=== PATIENT | female | born 1950 | race Caucasian/White ===

== ENCOUNTER 2023-09-26 06:32 | Day surgery (SDC) | payer OTHER, SELFPAY ==
[2023-09-14 07:46] VITALS: BMI 42.0
[2023-09-14 08:50] LABS: Hematocrit 38.4 % (37.0-47.0); Hemoglobin 12.7 g/dL (12.0-16.0); Mean Corp Hgb Conc. 33.1 g/dL (33.0-37.0); Mean Corpuscular Hgb 29.1 pg (27.0-31.0); Mean Corpuscular Volume 88.1 fL (81.0-99.0); Mean Platelet Volume 9.2 fL (7.4-10.4); Platelet Count 248 10^3/uL (130-400); Red Blood Cell Count 4.36 10^6/uL (4.20-5.40); Red Cell Dist. Width 13.2 % (11.5-14.5); White Blood Cell Count 4.8 10^3/uL (4.8-10.8)
[2023-09-14 10:55] LABS: Blood Urea Nitrogen 22 mg/dl (7-17); Calcium 9.5 mg/dl (8.4-10.2); Carbon Dioxide 29 mmol/L (22-30); Chloride 102 mmol/L (98-107); Estimated Creatinine Clearance 75 ml/min; Glucose 89 mg/dl (70-99); Potassium 3.5 mmol/L (3.5-5.1); Sodium 142 mmol/L (135-145); eGFR > 60.00
--- NOTE | 2023-09-14 13:55 | PTCARENOTE ---
Abn ECG, Dr. Bedoya notified, no new requests.
[2023-09-26] VITALS (9 sets, daily range): BP systolic 127–161; BP diastolic 56–94; BMI 42.0
[2023-09-26] MEDS: NORMOSOL-R 1000 IV (13:32)
[2023-09-26] MEDS: Pyridium 200 MG PO (13:33)
== END 2023-09-26 17:10 | disposition home or self-care (01) ==
LOC: SDS 06:32
PROVIDERS: ATTENDING PHYSICIAN Obstetrics & Gynecology; FAMILY PHYSICIAN Family Medicine
DX: N39.3 Stress incontinence (female) (male) (principal); N39.46 Mixed incontinence; N81.6 Rectocele; N95.2 Postmenopausal atrophic vaginitis
CPT/HCPCS: 57288; 36415; 80048; 85027; 86850; 86900; 86901; 93005; C1771

== ENCOUNTER → 2023-11-19 14:02 | Outpatient (REF) | payer OTHER, SELFPAY | LOC: WDC 14:02 | PROVIDERS: ATTENDING PHYSICIAN Surgery; FAMILY PHYSICIAN Family Medicine | DX: Z12.31 Encounter for screening mammogram for malignant neoplasm of breast (principal); Z85.3 Personal history of malignant neoplasm of breast; C50.412 Malignant neoplasm of upper-outer quadrant of left female breast; Z17.0 Estrogen receptor positive status [ER+] | CPT/HCPCS: 77063; 77067 ==

== ENCOUNTER 2024-03-06 06:23 | Day surgery (SDC) | payer OTHER, SELFPAY | END 2024-03-06 10:45 | disposition home or self-care (01) | LOC: GI 06:23 | PROVIDERS: ATTENDING PHYSICIAN Internal Medicine | DX: Z12.11 Encounter for screening for malignant neoplasm of colon (principal); Z80.0 Family history of malignant neoplasm of digestive organs; Z86.0100 Personal history of colon polyps, unspecified; D12.2 Benign neoplasm of ascending colon; K63.5 Polyp of colon; K58.9 Irritable bowel syndrome, unspecified; K44.9 Diaphragmatic hernia without obstruction or gangrene; Z98.84 Bariatric surgery status | CPT/HCPCS: 45385; 43235; 88305; J1610 ==